=== PATIENT | male | born 1950 | race Caucasian/White ===

== ENCOUNTER 2019-12-16 13:08 | Emergency (ER) | payer MEDICARE, SELFPAY ==
[2019-12-16 13:15] VITALS: BP 180/94; PULSE 110; RESP 16; TEMP 37.7; O2SAT 95
--- NOTE | 2019-12-16 13:30 | ED.URI ---
HPI - URI/Sore Throat General Chief Complaint: Upper Respiratory Infection Stated Complaint: can't catch breath Time Seen by Provider: 12/16/19 13:31 Source: patient and RN notes reviewed Mode of arrival: ambulatory Limitations: no limitations History of Present Illness HPI Narrative: 69-year-old male presents with concern for wheezing and shortness of breath. Reports he was diagnosed in this clinic last year with COPD, was given an albuterol inhaler which he is used sporadically throughout the year. Reports he never went to see a doctor, does not take a controller medicine. Reports his albuterol inhaler ran out. Reports he was having no symptoms until today. Reports he went into a store and wore a cough mask and while wearing the mask was having shortness of breath and lightheadedness. Reports symptoms resolved when he took off the mask. He denies fever, body aches, sweats, chills, nasal congestion, rhinorrhea, cough. MD elicited complaint: other (Shortness of breath) Related Data Allergies Allergy/AdvReac Type Severity Reaction Status Date / Time No Known Allergies Allergy Verified 12/16/19 13:39 Review of Systems Review of Systems: Narrative: CONSTITUTIONAL: Denies malaise, chills, sweats, or fever. EYES: Denies visual changes, redness, or discharge. ENT: Reports rhinorrhea, congestion, sinus pain, otalgia and sore throat. CARDIOVASCULAR: Denies chest pain, palpitations, or edema. RESPIRATORY: Denies cough or current dyspnea. GASTROINTESTINAL: Denies abdominal pain, nausea, vomiting, diarrhea SKIN: Denies rash or itching. MUSCULOSKELETAL: Denies myalgia. NEUROLOGIC: Denies headache. All systems reviewed & are unremarkable except as noted in HPI and below PMFSH Social History Social History Alcohol intake: current Comments At time of signature, agree with nursing past medical, surgical, social and family history. There is no relevant family history pertinent to the presenting complaint Exam Narrative: Exam Narrative: GENERAL: Well-appearing, well-nourished, and in no acute distress. HEAD: Normocephalic, atraumatic. EYES: PERRLA, conjunctivae clear ENT: Nares clear. Mucous membranes moist. TM pearly snyder with sharp light reflex bilaterally; no tragal tenderness. Oropharynx without erythema or lesions. Tonsils not enlarged and without exudate. NECK: Supple. CHEST: No respiratory distress. Inspiratory and expiratory wheeze scattered, lung sounds equal. No bony deformities, no asymmetry. Speaks in full sentences. HEART: Regular rate and rhythm. No murmur heard. SKIN: Warm, dry, no rash. NEURO: Alert and oriented x3. PSYCH: Normal mood and affect Course Course Emergency Course: Discussed with patient importance of finding a primary care provider, seeking further evaluation of his blood pressure and COPD.. Patient is aware of diagnosis, understands and agrees to treatment plan. Anticipatory guidance given. Patient agrees to follow-up as directed and is aware of reasons to seek care at the emergency department. Portions of this record may have been created with voice recognition software Vital Signs Vital signs: Vital Signs Temperature 99.9 F H 12/16/19 13:15 Pulse Rate 110 H 12/16/19 13:15 Respiratory Rate 16 12/16/19 13:15 Blood Pressure 180/94 H 12/16/19 13:15 Pulse Oximetry 95 12/16/19 13:15 Temperature 99.9 F H 12/16/19 13:15 Pulse Rate 110 H 12/16/19 13:15 Respiratory Rate 16 12/16/19 13:15 Blood Pressure 180/94 H 12/16/19 13:15 Pulse Oximetry 95 12/16/19 13:15 Reviewed. Pt has been instructed to follow up with his primary care provider within the next week regarding his elevated blood pressure today. MDM - URI/Sore Throat MDM Narrative Medical decision making narrative: Differential diagnosis considered: COPD exacerbation, coronavirus, strep pharyngitis, allergic rhinitis, upper respiratory tract infection, sinusitis, rhinosinusitis, nasopharyngitis. viral pharyngitis, otitis
== END 2019-12-16 13:45 | disposition home or self-care (01) ==
PROVIDERS: Emergency Provider Nurse Practitioner
DX: J44.1 Chronic obstructive pulmonary disease with (acute) exacerbation (principal); R03.0 Elevated blood-pressure reading, without diagnosis of hypertension
CPT/HCPCS: 99213; G0463

== ENCOUNTER 2020-09-04 08:07 | Emergency (ER) | payer MEDICARE, SELFPAY ==
--- NOTE | 2020-09-04 08:25 | ED.URI ---
HPI - URI/Sore Throat General Chief Complaint: Shortness of Breath/Dyspnea Stated Complaint: SOB/COPD Time Seen by Provider: 09/04/20 08:25 Source: patient and RN notes reviewed Mode of arrival: wheelchair History of Present Illness HPI Narrative: 70-year-old male presents to [facility] with 24 hours of increased shortness of breath. Patient states he does have a history of COPD and uses an albuterol inhaler that he was prescribed several months ago at this clinic. States he ran out about a month ago. Denies chest pain, fevers, abdominal pain. No nausea vomiting or diarrhea. Patient is a smoker. Smokes approximately 1 pack a day. Is only able to talk in 2-3 words at one time. Currently tripoding on arrival. Needed a wheelchair to come into facility due to his shortness of breath. Denies having a primary care provider. Denies any other past medical history. MD elicited complaint: cough Related Data Allergies Allergy/AdvReac Type Severity Reaction Status Date / Time No Known Allergies Allergy Verified 12/16/19 13:39 Review of Systems Review of Systems: Narrative: CONSTITUTIONAL: Denies fever, chills, or sweats. EYES: Denies visual changes, redness, or discharge. CARDIOVASCULAR: Denies chest pain, palpitations, or edema. RESPIRATORY: Endorses cough or dyspnea. GASTROINTESTINAL: Denies abdominal pain, nausea, vomiting, or diarrhea. GENITOURINARY: Denies dysuria or hematuria. SKIN: Denies rash or itching. MUSCULOSKELETAL: Denies back pain, joint pain, or myalgia. NEUROLOGIC: Denies headache, numbness, or weakness. PSYCHIATRIC: Denies anxiety or depression. All other systems reviewed are negative, except as documented in HPI. [facility] Social History Social History Alcohol intake: current Comments States only past medical history is COPD. Denies surgical history. Patient smokes 1 pack of cigarettes per day At the time of my signature, I reviewed and agree with the nursing past medical, surgical, social, and family history. There is no relevant family history pertinent to the patient complaint. Exam Narrative: Exam Narrative: GENERAL: Patient is frail and ill in appearance, skin is dusky. In respiratory distress. HEAD: normocephalic, atraumatic. EYES: PERRL. Sclera clear/white. Vision is grossly intact. EARS: External ears normal. NOSE: External nose normal with no obvious nasal discharge. THROAT: Mucous membranes moist, posterior pharynx clear. NECK: Neck supple, non-tender without lymphadenopathy. CARDIOVASCULAR: Tachycardic RESPIRATORY: Tachypneic, decreased breath sounds bilaterally throughout all lung garza. Respiratory distress noted. GASTROINTESTINAL: Abdomen soft, non-tender, nondistended. SKIN: Pale, dusky. NEURO: awake, alert, and oriented to person, place and time. There were no obvious focal neurologic abnormalities. EXTREMITIES: No clubbing, edema. Const: General: ill appearing; No diaphoretic Orientation/consciousness: patient oriented x3 Resp: Effort & Inspection: labored, tachypneic and uses accessory muscles Auscultation: diminished lung sounds bilateral and diffuse Cardio: Rate: tachycardic Course Course Emergency Course: On arrival patient appeared in respiratory distress, tachypneic, pale, dusky in appearance. Vitals showed that patient was satting 83% tachycardic 130s to 140s. Patient is tripoding able to only sit in a tripod or 90 degree angle. Otherwise states that he is short of breath. EMS called. Report to [facility], closest facility. Spoke with Christie at [facility] Vital Signs Vital signs: Vital Signs Temperature 99.4 F 09/04/20 08:49 Pulse Rate 130 H 09/04/20 08:49 Respiratory Rate 28 H 09/04/20 08:49 Blood Pressure 202/108 H 09/04/20 08:49 Pulse Oximetry 83 L 09/04/20 08:49 Temperature 99.4 F 09/04/20 08:49 Pulse Rate 130 H 09/04/20 08:49 Respiratory Rate 28 H 09/04/20 08:49 Blood Pressure 202/108 H 09/04/20 08:49 Pulse Oximetry 83 L
--- NOTE | 2020-09-04 08:30 | ECG_ITS ---
Measurements Intervals [place] Rate: 113 P: 83 MS: 159 QRS: 55 QRSD: 88 T: 96 QT: 320 QTc: 440 Interpretive Statements SINUS TACHYCARDIA ATRIAL PREMATURE COMPLEX MISSING LEAD V4 BASELINE ARTIFACT- I, II, III, AVR, AVL, AVF, V1-V6 ABNORMAL ECG Electronically Signed On 09-04-2020 10:26:58 TIPPLE ENGINEER by Ike Aguilera D.O.
[2020-09-04 08:49] VITALS: BP 202/108; PULSE 130; RESP 28; TEMP 37.4; O2SAT 83
[2020-09-04 08:59] VITALS: O2SAT 91
== END 2020-09-04 08:45 | disposition short-term general hospital (02) ==
PROVIDERS: Emergency Provider Nurse Practitioner
DX: R06.02 Shortness of breath (principal); R09.02 Hypoxemia; R94.31 Abnormal electrocardiogram [ECG] [EKG]; J44.9 Chronic obstructive pulmonary disease, unspecified; F17.210 Nicotine dependence, cigarettes, uncomplicated
CPT/HCPCS: 93005; 99215; G0463

== ENCOUNTER 2021-07-06 13:53 | Outpatient (CLI) | payer MEDICARE, SELFPAY ==
[2021-07-06 20:50] LABS: Basophils Absolute Auto 0.1 K/mm3 (0.0-0.1); Basophils Percent Auto 0.8 % (0.2-1.2); Eosinophils Absolute Auto 0.3 K/mm3 (0-0.3); Hematocrit 44.8 % (42.0-52.0); Hemoglobin 14.8 g/dL (14.0-18.0); Immature Granulocyte Absolute 0.03 K/mm3 (0.00-0.031); Immature Granulocyte Percent A 0.3 % (0-0.5); Lymphocytes Absolute Auto 3.42 K/mm3 (0.9-3.2); Lymphocytes Percent Auto 33.3 % (18.3-44.2); Mean Corpuscular Hemoglobin 29.9 pg (26-34); Mean Corpuscular Volume 90.5 fl (80-100); Mean Platelet Volume 9.9 fl (7.4-10.4); Monocytes Absolute Auto 0.8 K/mm3 (0.1-0.6); Monocytes Percent Auto 7.9 % (2.6-8.5); Neutrophils Absolute Auto 5.6 K/mm3 (1.3-6.7); Neutrophils Percent Auto 54.7 % (45.5-73.1); Platelet Count Result 276 k/mm3 (150-375); Red Blood Count 4.95 M/mm3 (4.6-6.20); Red Cell Distribution Width 16.4 % (11.5-14.5); White Blood Count 10.3 K/mm3 (4.5-10.0)
[2021-07-06 21:08] LABS: Alanine Aminotransferase 20 U/L (4-50); Alkaline Phosphatase 78 U/L (38-126); Anion Gap 10 mmol/L (8-16); Aspartate Amino Transferase 34 U/L (17-59); Bilirubin,Total 0.4 mg/dL (0.2-1.3); Blood Urea Nitrogen 12 mg/dL (9-20); Calcium 10.1 mg/dL (8.4-10.2); Carbon Dioxide 26 mmol/L (22-30); Chloride 100 mmol/L (98-107); Cholesterol 209 mg/dL (0-200); Estimated Glomerular Filt Rate > 60; Glucose 90 mg/dL (65-110); Potassium 4.8 mmol/L (3.4-5.0); Sodium 136 mmol/L (137-145); Triglycerides 91 mg/dL (<150)
[2021-07-06 21:27] LABS: LDL Cholesterol Direct 87 mg/dL
[2021-07-06 21:44] LABS: Prostate Specific Antigen 1.4 ng/mL (< OR = 4.0)
[2021-07-06 22:02] LABS: HDL Direct 116 mg/dL
== END 2021-07-06 13:54 | disposition home or self-care (01) ==
PROVIDERS: PCP Family Medicine; Visit Provider Family Medicine
DX: J44.9 Chronic obstructive pulmonary disease, unspecified (principal); I10 Essential (primary) hypertension; Z00.00 Encounter for general adult medical examination without abnormal findings; Z12.5 Encounter for screening for malignant neoplasm of prostate
CPT/HCPCS: 36415; 80053; 80061; 84153; 84443; 85025; G0103

== ENCOUNTER 2022-02-23 08:27 | Outpatient (CLI) | payer MEDICARE, SELFPAY ==
[2022-02-23 19:54] LABS: Hematocrit 44.7 % (42.0-52.0); Hemoglobin 13.8 g/dL (14.0-18.0); Mean Corpuscular HGB Conc 30.9 g/dl (32-36); Mean Corpuscular Hemoglobin 30.2 pg (26-34); Mean Corpuscular Volume 97.8 fl (80-100); Mean Platelet Volume 10.4 fl (7.4-10.4); Platelet Count Result 262 k/mm3 (150-375); Red Blood Count 4.57 M/mm3 (4.6-6.20); Red Cell Distribution Width 16.9 % (11.5-14.5)
[2022-02-23 20:01] LABS: Alanine Aminotransferase 29 U/L (6-50); Albumin Level 4.7 g/dL (3.5-5.1); Alkaline Phosphatase 66 U/L (38-126); Anion Gap 6 mmol/L (8-16); Aspartate Amino Transferase 67 U/L (17-59); Bilirubin,Total 0.5 mg/dL (0.2-1.3); Blood Urea Nitrogen 11 mg/dL (9-20); Calcium 9.2 mg/dL (8.4-10.2); Carbon Dioxide 28 mmol/L (22-30); Chloride 101 mmol/L (98-107); Estimated Glomerular Filt Rate > 60; Glucose 89 mg/dL (65-110); Potassium 4.5 mmol/L (3.4-5.0); Sodium 135 mmol/L (137-145)
[2022-02-23 20:31] LABS: Prostate Specific Antigen 0.8 ng/mL (< OR = 4.0)
== END 2022-02-23 08:28 | disposition home or self-care (01) ==
PROVIDERS: PCP Family Medicine; Visit Provider Family Medicine
DX: F17.200 Nicotine dependence, unspecified, uncomplicated (principal); Z12.5 Encounter for screening for malignant neoplasm of prostate
CPT/HCPCS: 36415; 80053; 84153; 85027; G0103

== ENCOUNTER 2022-08-24 07:56 | Outpatient (CLI) | payer MEDICARE, SELFPAY ==
[2022-08-24 19:33] LABS: Hematocrit 42.7 % (42.0-52.0); Mean Corpuscular HGB Conc 32.8 g/dl (32-36); Mean Corpuscular Hemoglobin 30.1 pg (26-34); Mean Corpuscular Volume 91.8 fl (80-100); Mean Platelet Volume 10.3 fl (7.4-10.4); Platelet Count Result 272 k/mm3 (150-375); Red Blood Count 4.65 M/mm3 (4.6-6.20); Red Cell Distribution Width 15.6 % (11.5-14.5); White Blood Count 7.5 K/mm3 (4.5-10.0)
[2022-08-24 19:41] LABS: Alanine Aminotransferase 16 U/L (6-50); Albumin Level 4.7 g/dL (3.5-5.1); Alkaline Phosphatase 62 U/L (38-126); Aspartate Amino Transferase 63 U/L (17-59); Bilirubin,Total 0.8 mg/dL (0.2-1.3)
[2022-08-24 20:23] LABS: Hepatitis B Surface Antigen Negative (Negative)
[2022-08-24 20:29] LABS: HAV RESULT Negative (Negative); Hepatitis B Core IgM Result Negative (Negative)
[2022-08-24 20:40] LABS: Hepatitis C Virus Antibody Negative (Negative)
== END 2022-08-24 07:57 | disposition home or self-care (01) ==
PROVIDERS: PCP Family Medicine; Visit Provider Family Medicine
DX: D64.9 Anemia, unspecified (principal); R74.8 Abnormal levels of other serum enzymes; R74.01 Elevation of levels of liver transaminase levels; R74.02 Elevation of levels of lactic acid dehydrogenase [LDH]
CPT/HCPCS: 36415; 80074; 80076; 85027

== ENCOUNTER 2024-07-17 11:05 | Outpatient (CLI) | payer MEDICARE, SELFPAY ==
--- NOTE | ~2024-07-17 | XR_ITS ---
Clinical Indication: Cough PA and lateral views of the chest: Comparison: 01/30/2019 Findings: The lungs are clear, without evidence of focal consolidation or pleural effusion. Cardiome diastinal silhouette is within normal limits. Bones and soft tissues are unremarkable. Impression: Normal chest. Reviewed, dictated and finalized at [facility]. RY PUBLIC Impression: Normal chest.
[2024-07-17 19:56] LABS: Basophils Percent Auto 0.5 % (0.2-1.2); Eosinophils Absolute Auto 0.5 K/mm3 (0-0.3); Eosinophils Percent Auto 6.5 % (0-4.4); Hematocrit 37.1 % (42.0-52.0); Immature Granulocyte Absolute 0.01 K/mm3 (0.00-0.031); Immature Granulocyte Percent A 0.1 % (0-0.5); Lymphocytes Absolute Auto 2.64 K/mm3 (0.9-3.2); Lymphocytes Percent Auto 34.9 % (18.3-44.2); Mean Corpuscular HGB Conc 32.3 g/dl (32-36); Mean Corpuscular Hemoglobin 27.8 pg (26-34); Mean Corpuscular Volume 85.9 fl (80-100); Monocytes Absolute Auto 0.9 K/mm3 (0.1-0.6); Monocytes Percent Auto 12.3 % (2.6-8.5); Neutrophils Absolute Auto 3.5 K/mm3 (1.3-6.7); Neutrophils Percent Auto 45.7 % (45.5-73.1); Platelet Count Result 335 k/mm3 (150-375); Red Blood Count 4.32 M/mm3 (4.6-6.20); Red Cell Distribution Width 18.3 % (11.5-14.5); White Blood Count 7.6 K/mm3 (4.5-10.0)
[2024-07-17 20:06] LABS: Alanine Aminotransferase 16 U/L (6-50); Albumin Level 4.6 g/dL (3.5-5.1); Alkaline Phosphatase 60 U/L (38-126); Anion Gap 6 mmol/L (4-12); Aspartate Amino Transferase 42 U/L (17-59); Bilirubin,Total 0.5 mg/dL (0.2-1.3); Blood Urea Nitrogen 13 mg/dL (9-20); Calcium 9.4 mg/dL (8.4-10.2); Carbon Dioxide 26 mmol/L (22-30); Chloride 101 mmol/L (98-107); Cholesterol 166 mg/dL (0-200); Estimated Glomerular Filt Rate > 60; Glucose 100 mg/dL (65-110); HDL Direct 98 mg/dL; Sodium 133 mmol/L (137-145); Triglycerides 42 mg/dL (<150)
[2024-07-17 20:17] LABS: LDL Cholesterol Direct 50 mg/dL
== END 2024-07-17 11:06 | disposition home or self-care (01) ==
LOC: ANHBWCLAB 11:06
PROVIDERS: PCP Nurse Practitioner Adult Health; Visit Provider Nurse Practitioner Adult Health
DX: R05.9 Cough, unspecified (principal); I10 Essential (primary) hypertension
CPT/HCPCS: 36415; 71046; 80053; 80061; 83735; 85025

== ENCOUNTER 2024-07-19 11:06 | Outpatient (CLI) | payer MEDICARE, SELFPAY ==
[2024-07-19 21:03] LABS: Iron 38 ug/dL (49-181)
[2024-07-19 21:13] LABS: Percent Iron Saturation 7 % (20-50)
== END 2024-07-19 11:07 | disposition home or self-care (01) ==
PROVIDERS: PCP Nurse Practitioner Adult Health; Visit Provider Nurse Practitioner Adult Health
DX: D64.9 Anemia, unspecified (principal)
CPT/HCPCS: 36415; 82728; 83540; 83550

== ENCOUNTER 2025-02-19 08:30 | Outpatient (CLI) | payer MEDICARE, SELFPAY ==
--- OUTSIDE RECORDS SUMMARY | 2025-02-19 08:36 | XMS_ITS | Clinical Summary ---
Author Organization [facility] Address [address] [place] [address] Care Team Providers Care Safety Assistant Name Role Phone Luis Shahid MD Primary Care Provider [phone] Allergies No known active allergies Medications albuterol 2.5 mg /3 mL (0.083 %) nebulizer solution Take 3 mL (2.5 mg total) by nebulization every 4 (four) hours as needed for wheezing 75 mL 09/05/19 21 Active nicotine (NICODERM CQ) [address] 1 patch on the skin daily 30 patch 09/05/19 21 Active albuterol (PROAIR RESPICLICK) 90 mcg/actuation inhaler Inhale 2 puffs every 6 (six) hours as needed for wheezing 1 each 05/25/20 23 Active fluticasone propion-salmetero L (ADVAIR DISKUS) 250-50 mcg/dose diskus inhaler Inhale 1 puff 2 (two) times a day Rinse mouth with water after use. Do not swallow. 60 each 05/25/20 23 Active ipratropium-albut Jose Miguel (DUO-NEB) 0.5-2.5 mg/3 mL nebulizer solutionIndicatio ns:Chronic Obstructive Pulmonary Disease with Bronchospasms Take 3 mL by nebulization every 6 (six) hours 180 mL 05/25/20 23 Active lisinopril-hydroC HLOROthiazide (ZESTORETIC) 20-25 mg per tabletIndications :hypertension Take 1 tablet by mouth daily 30 tablet 05/25/20 23 Active lisinopriL (PRINIVIL,ZESTRIL ) 30 mg tablet 03/28/20 24 Active Active Problems Problem Noted Date Diagnosed Date COPD exacerbation 09/04/2020 Mucopurulent chronic bronchitis Surgical History Surgery Date Site/Laterality Comments HERNIA REPAIR LEG SURGERY Medical History Medical History Date Comments COPD (chronic obstructive pulmonary disease) (HC C) Social History Tobacco Use Types Packs/Day Years Used Date Smoking Tobacco: Every Day Cigarettes Smokeless Tobacco: Never Personal Safety Answer Date Recorded Have you ever been in or are you currently in a harmful physical or emotional relationship or is someone making you feel afraid or unsafe? 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 Gender Identity Not on file Sexual Orientation Not on file Obstetrics History Last Filed Vital Signs Vital Sign Reading Time Taken Comments Blood Pressure 163/99 05/25/2023 11:30 PM CDT Pulse 84 05/25/2023 11:30 PM CDT Temperature 36.9 C (98.4 F) 05/25/2023 10:07 PM CDT Respiratory Rate 11 05/25/2023 11:30 PM CDT Oxygen Saturation 94% 05/25/2023 11:38 PM CDT Inhaled Oxygen Concentration - - Weight 58.5 kg (129 lb) 05/25/2023 10:07 PM CDT Height 175.3 cm (5' 9.02) 09/04/2020 1:55 PM CS T Body Mass Index 19.04 09/04/2020 1:55 PM EARTH BURNER Plan of Treatment Health Maintenance Due Date Last Done Comments Colon Cancer Screening-Colonoscopy 1950 Depression Screening 1950 Hepatitis C Screening 1950 DTaP/Tdap/Td Vaccine (1 - Tdap) 1963 Hepatitis B Screening 1970 Pneumococcal vaccine 65+ (1 of 2 - PCV) 1971 Zoster Vaccine (1 of 2) 2002 Abdominal Aortic Aneurysm (AAA) Screen 2017 Well Visit 65+ 2017 Fall Risk Assessment 09/05/2021 09/05/2020 Influenza Vaccine (#1) 2025 Insurance [facility] MDCR HMO REF [facility] [address] [place] [id number] [facility] MEDICARE ADVANTAGE Advance Directives For more information, please contact: [phone] * Full Code (Latest Code Status on File) Date Activated Date Inactivated Comments 09/04/2020 2:18 PM 09/05/2020 10:06 PM Care Teams Safety Assistant Relationship Specialty Start Date End Date Luis Shahid MD PCP - General Family Practice 05/25/23
--- OUTSIDE RECORDS SUMMARY | 2025-02-19 08:36 | XMS_ITS | Referral Summary ---
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
[2025-02-19 19:38] LABS: Hematocrit 42.0 % (42.0-52.0); Hemoglobin 13.3 g/dL (14.0-18.0); Mean Corpuscular HGB Conc 31.7 g/dl (32-36); Mean Corpuscular Hemoglobin 31.1 pg (26-34); Mean Corpuscular Volume 98.4 fl (80-100); Platelet Count Result 256 k/mm3 (150-375); Red Blood Count 4.27 M/mm3 (4.6-6.20); White Blood Count 6.9 K/mm3 (4.5-10.0)
[2025-02-19 19:45] LABS: Alanine Aminotransferase 19 U/L (6-50); Albumin Level 4.3 g/dL (3.5-5.1); Alkaline Phosphatase 44 U/L (38-126); Anion Gap 7 mmol/L (4-12); Aspartate Amino Transferase 65 U/L (17-59); Bilirubin,Total 0.5 mg/dL (0.2-1.3); Blood Urea Nitrogen 10 mg/dL (9-20); Calcium 10.1 mg/dL (8.4-10.2); Carbon Dioxide 28 mmol/L (22-30); Chloride 101 mmol/L (98-107); Cholesterol 187 mg/dL (0-200); Estimated Glomerular Filt Rate > 60; Glucose 68 mg/dL (65-110); HDL Direct 101 mg/dL; Potassium 5.5 mmol/L (3.4-5.0); Sodium 136 mmol/L (137-145); Total Protein 7.7 g/dL (6.3-8.2); Triglycerides 60 mg/dL (<150)
[2025-02-19 19:47] LABS: Iron 53 ug/dL (49-181)
[2025-02-19 20:03] LABS: Percent Iron Saturation 12 % (20-50)
[2025-02-19 20:12] LABS: Ferritin 16.20 ng/mL (11.1-264)
[2025-02-19 20:13] LABS: Prostate Specific Antigen 0.9 ng/mL (< OR = 4.0)
== END 2025-02-19 08:31 | disposition home or self-care (01) ==
LOC: ANHBWCLAB 08:33
PROVIDERS: PCP Nurse Practitioner Adult Health; Visit Provider Nurse Practitioner Adult Health
DX: R74.8 Abnormal levels of other serum enzymes (principal); I10 Essential (primary) hypertension; Z12.5 Encounter for screening for malignant neoplasm of prostate; D64.9 Anemia, unspecified
CPT/HCPCS: 36415; 80053; 80061; 82728; 83540; 83550; 84153; 85027; G0103

== ENCOUNTER 2025-02-27 09:13 | Outpatient (CLI) | payer MEDICARE, SELFPAY ==
--- OUTSIDE RECORDS SUMMARY | 2025-02-27 09:17 | XMS_ITS | Clinical Summary ---
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 Gender Identity Not on file Sexual Orientation [...] Body Mass Index 19.04 09/04/2020 1:55 PM SAVINGS COUNSELOR Plan of Treatment Health Maintenance Due Date [...] 09/05/2021 09/05/2020 Influenza Vaccine (#1) 2025 Insurance [facility] MDCR HMO REF [facility] [address] [place] [id number] [facility] MEDICARE ADVANTAGE Advance Directives For more information, please contact: [phone] * Full Code (Latest Code Status on File) Date Activated Date Inactivated Comments 09/04/2020 2:18 PM 09/05/2020 10:06 PM Care Teams Senior Back End Java Developer Relationship Specialty Start Date End Date Luis Shahid MD PCP - General Family Practice 05/25/23
--- OUTSIDE RECORDS SUMMARY | 2025-02-27 09:17 | XMS_ITS | Referral Summary ---
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 MEDICARE Address: [facility] [address] [place] [address] [facility] MEDICARE ADVANTAGE Advance Directives For more information, please contact: [phone] * Full Code (Latest Code Status on File) Date Activated Date Inactivated Comments 09/04/2020 2:18 PM 09/05/2020 10:06 PM Care Teams Social Service Director Relationship Specialty Start Date End Date Luis Shahid MD PCP - General Family Practice 05/25/23
[2025-02-27 18:49] LABS: Potassium 4.3 mmol/L (3.4-5.0)
== END 2025-02-27 09:14 | disposition home or self-care (01) ==
PROVIDERS: PCP Nurse Practitioner Adult Health; Visit Provider Nurse Practitioner Adult Health
DX: E87.5 Hyperkalemia (principal)
CPT/HCPCS: 36415; 84132

== ENCOUNTER 2025-06-18 10:30 | Outpatient (CLI) | payer MEDICARE, SELFPAY ==
--- OUTSIDE RECORDS SUMMARY | 2025-06-18 12:09 | XMS_ITS | Clinical Summary ---
Author Organization [facility] Address [address] [place] [address] Care Team Providers [employer] Name Role Phone Luis Shahid MD Primary Care Provider [phone] Julio Céasr Strauss DO Unavailable [phone] Lisa Joe MA Unavailable [phone] Allergies No known active allergies Medications albuterol 2.5 mg /3 mL (0.083 %) nebulizer solution Take 3 mL (2.5 mg total) by nebulization every 4 (four) hours as needed for wheezing 75 mL 021 Active nicotine (NICODERM CQ) [address] 1 patch on the skin daily 30 patch 021 Active ipratropium-albu teroL (DUO-NEB) 0.5-2.5 mg/3 mL nebulizer solutionIndicati ons:Chronic Obstructive Pulmonary Disease with Bronchospasms Take 3 mL by nebulization every 6 (six) hours 180 mL 023 Active lisinopriL (PRINIVIL,ZESTRI L) 30 mg tablet 024 Active albuterol (PROAIR RESPICLICK) 90 mcg/actuation inhaler Inhale 2 puffs every 6 (six) hours as needed for wheezing Active budesonide-glyco pyr-formoterol (Breztri Aerosphere) 160-9-4.8 mcg/actuation inhaler Inhale 2 puffs 2 (two) times a day Active cefdinir (OMNICEF) 300 mg capsule Take 1 capsule (300 mg total) by mouth 2 (two) times a day for 5 days 10 capsule 025 2024 Active predniSONE (DELTASONE) 20 mg tablet Take 2 tablets (40 mg) by mouth daily for 3 days, THEN 1.5 tablets (30 mg) daily for 3 days, THEN 1 tablet (20 mg) daily for 3 days, THEN 0.5 tablets (10 mg) daily for 3 days. 15 tablet 025 2024 Active albuterol (PROAIR RESPICLICK) 90 mcg/actuation inhaler Inhale 2 puffs every 6 (six) hours as needed for wheezing 1 each 023 2024 Discontinued(S top Taking at Discharge) fluticasone propion-salmeter oL (ADVAIR DISKUS) 250-50 mcg/dose diskus inhaler Inhale 1 puff 2 (two) times a day Rinse mouth with water after use. Do not swallow. 60 each 023 2024 Discontinued(T herapy completed) lisinopril-hydro CHLOROthiazide (ZESTORETIC) 20-25 mg per tabletIndication s:hypertension Take 1 tablet by mouth daily 30 tablet 023 2024 Discontinued(T herapy completed) cefdinir (OMNICEF) 300 mg capsule Take 1 capsule (300 mg total) by mouth 2 (two) times a day for 5 days 10 capsule 025 2024 Discontinued predniSONE (DELTASONE) 20 mg tablet Take 2 tablets (40 mg) by mouth daily for 3 days, THEN 1.5 tablets (30 mg) daily for 3 days, THEN 1 tablet (20 mg) daily for 3 days, THEN 0.5 tablets (10 mg) daily for 3 days. 15 tablet 025 2024 Discontinued Active Problems Problem Noted Date Diagnosed Date Moderate protein-calorie malnutrition 06/11/2025 Acute hypoxemic respiratory failure 06/10/2025 Alcohol abuse 06/10/2025 Hyponatremia 06/10/2025 COPD exacerbation 09/04/2020 Mucopurulent chronic bronchitis Encounters Date Type Department Care Team Description 06/17/2025 JB ED Outreach [facility] Organization [address] [place] [address] Lisa Joe MA 06/10/2025 1:52 AM CDT - 06/14/2025 4:16 PM CDT Hospital Encounter [facility] Acute Medicine [address] [place] [address] Ruben Bazan MD Huynh, Kiet T., MD Nikolic, Jelena, MD Acute hypoxic respiratory failure (HCC) (Primary Dx); Acute hypoxemic respiratory failure (HCC); COPD exacerbation (HCC) Discharge Disposition: Discharge to home or self care 06/10/2025 1:35 AM CDT - 06/10/2025 11:59 PM CDT Hospital Encounter [facility] Emergency, Room R Discharge Disposition: Discharge to home or self care from Last 3 Months Surgical History Surgery Date Site/Laterality Comments HERNIA REPAIR LEG SURGERY Medical History Medical History Date Comments COPD (chronic obstructive pulmonary disease) Social History Tobacco Use Types Packs/Day Years Used Date Smoking Tobacco: Every Day Cigarettes 0.5 50 Smokeless Tobacco: Never Tobacco Cessation:Ready to Q uit: Yes; Counseling Given: Not Answered Alcohol Use Standard Drinks/Week Comments Yes 20 (1 standard drink = 0.6 oz pu re alcohol) Social Connection and Isolation Panel Answer Date Recorded In a typical week, how many times do you talk on the phone with family, friends, or neighbors? More than three times a week 06/10/2025 How often do you get togethe r with friends or relatives? More than three times a week 06/10/2025 How often do you attend [facility] or adventist services? Never 06/10/2025 Do you belong to any clubs o r organizations such as congregation groups, unions, fraternal or athletic groups, or school groups? Yes 06/10/2025 How often do you attend meet ings of the clubs or organizations you belong to? More than 4 times per year 06/10/2025 Are you , , di vorced, , never , or living with a partner? 06/10/2025 AUDIT-C Answer Date Recorded Q1: How often do you have a drink containing alcohol? 4 or more times a week 06/10/2025 Q2: How many drinks containi ng alcohol do you have on a typical day when you are drinking? 5 or 6 Q3: How often do you have si x or more drinks on one occasion? Weekly 06/10/2025 Overall Financial Resource Strain (CARDIA) Answe r Date Recorded How hard is it for you to pa y for the very basics like food, housing, medical care, and heating? Not hard at all 06/10/2025 Hunger Vital Sign Answer Date Recorded Within the past 12 months, y ou worried that your food would run out before you got the money to buy more. Never true 06/10/20 Within the past 12 months, t he food you bought just didn't last and you didn't have money to get more. Never true 06/10/2025 PRAPARE - Transportation Answer Date Re corded In the past 12 months, has l ack of transportation kept you from medical appointments or from getting medications? No 05/16 In the past 12 months, has l ack of transportation kept you from meetings, work, or from getting things needed for daily living? No 06/10/2025 Housing Stability Vital Sign Answer Kwabena e Recorded In the last 12 months, was t here a time when you were not able to pay the mortgage or rent on time? No 06/10/2025 In the past 12 months, how m any times have you moved where you were living? 0 06/10/2025 At any time in the past 12 m [facility], were you homeless or living in a senior care (including now)? No 06/10/2025 [facility] Utilities Answer Date Recorded In the past 12 months has e [employer], gas, oil, or water company threatened to shut off services in your home? No 06/10/2025 Personal Safety Answer Date Recorded Have you ever been in or are you currently in a harmful physical or emotional relationship or is someone making you feel afraid or unsafe? 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 Gender Identity Not on file Sexual Orientation Not on file Last Filed Vital Signs Vital Sign Reading Time Taken Comments Blood Pressure 138/85 06/14/2025 12:00 PM CDT Pulse 100 06/14/2025 12:00 PM CDT Temperature 36.7 C (98 F) 06/14/2025 12:00 PM CDT Respiratory Rate 18 06/14/2025 12:00 PM CDT Oxygen Saturation 92% 06/14/2025 10:59 AM CDT Inhaled Oxygen Concentration - - Weight 54 kg (119 lb 0.8 oz) 06/11/2025 5:00 PM CDT Height 172.7 cm (5' 8) 06/10/2025 6:33 AM CDT Body Mass Index 18.1 06/10/2025 6:33 AM CDT Plan of Treatment Health Maintenance Due Date Last Done Comments Colon Cancer Screening-Colonoscopy 1950 Depression Screening 1950 Hepatitis C Screening 1950 DTaP/Tdap/Td Vaccine (1 - Tdap) 1963 Hepatitis B Screening 1970 Pneumococcal vaccine 65+ (1 of 2 - PCV) 1971 Lung Cancer Screening 2002 Zoster Vaccine (1 of 2) 2002 Abdominal Aortic Aneurysm (AAA) Screen 2017 Well Visit 65+ 2017 Influenza Vaccine (#1) 2025 Fall Risk Assessment 06/14/2026 06/14/2025 Procedures Procedure Name Priority Date/Time Associated Diagnosis Comments EGFR Routine 06/14/2025 3:42 AM CDT DIFFERENTIAL AUTO Routine 06/14/2025 3:4 2 AM CDT COMPREHENSIVE METABOLIC PANEL Routine 06/14/2025 3:42 AM CDT CBC WITH AUTO DIFFERENTIAL Routine 06/14/2025 3:42 AM CDT EGFR Routine 06/13/2025 3:40 AM CDT DIFFERENTIAL AUTO Routine 06/13/2025 3:4 0 AM CDT COMPREHENSIVE METABOLIC PANEL Routine 06/13/2025 3:40 AM CDT CBC WITH AUTO DIFFERENTIAL Routine 06/13/2025 3:40 AM CDT EGFR Routine 06/12/2025 3:00 AM CDT DIFFERENTIAL AUTO Routine 06/12/2025 3:0 0 AM CDT COMPREHENSIVE METABOLIC PANEL Routine 06/12/2025 3:00 AM CDT CBC WITH AUTO DIFFERENTIAL Routine 06/12/2025 3:00 AM CDT EGFR Routine 06/11/2025 4:12 AM CDT DIFFERENTIAL AUTO Routine 06/11/2025 4:1 2 AM CDT COMPREHENSIVE METABOLIC PANEL Routine 06/11/2025 4:12 AM CDT CBC WITH AUTO DIFFERENTIAL Routine 06/11/2025 4:12 AM CDT PNEUMONIA PCR Routine 06/10/2025 2:24 PM CDT PNEUMONIA PCR WITH AEROBIC CULTURE AND GRAM STAIN Routine 06/10/2025 2:24 PM CDT PROCALCITONIN Routine 06/10/2025 5:10 AM CDT EGFR Routine 06/10/2025 5:09 AM CDT DIFFERENTIAL AUTO Routine 06/10/2025 5:0 9 AM CDT COMPREHENSIVE METABOLIC PANEL Routine 06/10/2025 5:09 AM CDT CBC WITH AUTO DIFFERENTIAL Routine 06/10/2025 5:09 AM CDT INFLUENZA A/B, RSV, AND COVID-19 PCR STAT 06/10/2025 5:09 AM CDT LEGIONELLA ANTIGEN, URINE Routine 06/10/2025 5:09 AM CDT STREP PNEUMONIAE AG, URINE Routine 06/10/2025 5:09 AM CDT TROPONIN T HIGH-SENSITIVITY 2-HOUR Timed 06/10/2025 4:[address] CHEST PE W CONTRAST ED 3:53 AM CDT XR CHEST 1 VIEW ED 06/10/2025 2:26 AM CDT EGFR STAT 06/10/2025 2:00 AM CDT DIFFERENTIAL AUTO STAT 06/10/2025 2:0 0 AM CDT PRO B-TYPE NATRIURETIC PEPTIDE STAT 06/10/2025 2:00 AM CDT BLOOD GAS, VENOUS STAT 06/10/2025 2:0 0 AM CDT MAGNESIUM STAT 06/10/2025 2:00 AM CDT TROPONIN T HIGH-SENSITIVITY SERIES (BASELINE, 2HR, 4HR, 6HR) STAT 06/10/2025 2:00 AM CDT COMPREHENSIVE METABOLIC PANEL STAT 06/10/2025 2:00 AM CDT CBC WITH AUTO DIFFERENTIAL STAT 06/10/2025 2:00 AM CDT ECG 12-LEAD STAT 06/10/2025 1:53 AM CDT from Last 3 Months Results * eGFR (06/14/2025 3:42 AM CDT) [facility] eGFR 87 >=60 mL/min/1. 73 m2 Comment: Interpretive Data Reference Interval Normal >/= 90 mL/min/1.73m2 Mildly decreased* 60 - 89 mL/min/1.73m2 Mildly to moderately decreased 45 - 59 mL/min/1.73m2 Moderately to severely decreased 30 - 44 mL/min/1.73m2 Severely decreased 15 - 29 mL/min/1.73m2 Kidney Failure < 15 mL/min/1.73m2 *Relative to young adult level Estimated glomerular filtration rate is determined by the 2020 CKD-EPI equation recommended by the National Kidney Foundation (A Unifying Approach to GFR Estimation: Recommendations of the NKF-ASK Task Force on Reassessing the Inclusion of Race in Diagnosing Kidney Disease, JASN 2020). The CKD-EPI equation should not be used for patients with unstable renal function and has not been validated in children and those over 70. Current interpretive data was last reviewed 2021. Blood 06/14/2025 3:42 AM CDT 06/14/2025 3:48 AM CDT us Rob Gonzales MD LAB BLOOD ORDERABLES Final Resu lt [facility] ([place]) 1 [facility] Department [place] [address] * (ABNORMAL) Differential, auto (06/14/2025 3:42 AM CDT) Neutrophil abs 6.49 1.50 - 6.50 K/cumm Imm gran abs 0.02 0.00 - 0.10 K/cumm [facility] ([place]) Lymphocyte abs 4.07(H) 0.80 - 3.30 K/cumm [facility] ([place]) Monocyte abs 0.92(H) 0.20 - 0.80 K/cumm [facility] ([place]) Eosinophil abs 0.04 0.00 - 0.50 K/cumm [facility] ([place]) Basophil abs 0.02 0.00 - 0.10 K/cumm [facility] ([place]) Neutrophil pct 56.1 % [facility] ([place]) Comment: Interpretive Data Percent cell count reference ranges are not reported, since discordance with absolute values may lead to misinterpretation of CBC data. Current Interpretive Data was last revised on 2017. Imm gran pct 0.2 % [facility] ([place]) Comment: Interpretive Data Percent cell count reference ranges are not reported, since discordance with absolute values may lead to misinterpretation of CBC data. Current Interpretive Data was last revised on 2017. Lymphocyte pct 35.2 % [facility] ([place]) Comment: Interpretive Data Percent cell count reference ranges are not reported, since discordance with absolute values may lead to misinterpretation of CBC data. Current Interpretive Data was last revised on 2017. Monocyte pct 8.0 % [facility] ([place]) Comment: Interpretive Data Percent cell count reference ranges are not reported, since discordance with absolute values may lead to misinterpretation of CBC data. Current Interpretive Data was last revised on 2017. Eosinophil pct 0.3 % [facility] ([place]) Comment: Interpretive Data Percent cell count reference ranges are not reported, since discordance with absolute values may lead to misinterpretation of CBC data. Current Interpretive Data was last revised on 2017. Basophil pct 0.2 % [facility] ([place]) Comment: Interpretive Data Percent cell count reference ranges are not reported, since discordance with absolute values may lead to misinterpretation of CBC data. Current Interpretive Data was last revised on 2017. Blood 06/14/2025 3:42 AM CDT 06/14/2025 3:48 AM CDT us Rob Gonzales MD LAB BLOOD ORDERABLES Final Resu lt [facility] ([place]) 1 [facility] Department [place] [address] * (ABNORMAL) CBC with auto differential (06/14/2025 3:42 AM CDT) WBC 11.56(H) 3.80 - 9.90 K/cumm Hgb 13.2 13.0 - 17.5 g/dL [facility] ([place]) Hct 38.3(L) 38.9 - 50.3 % [facility] ([place]) Plt 254 150 - 400 K/cumm [facility] ([place]) MPV 9.0(L) 9.1 - 12.3 fL [facility] ([place]) RBC 4.06(L) 4.30 - 5.80 M/cumm [facility] ([place]) MCV 94.3 81.3 - 96.4 fL [facility] ([place]) MCH 32.5 27.1 - 33.3 pg [facility] ([place]) MCHC 34.5 32.3 - 35.7 g/dL [facility] ([place]) RDW CV 15.1(H) 11.1 - 14.9 % [facility] ([place]) RDW SD 52.9(H) 35.7 - 48.1 fL [facility] NRBC abs 0.00 0.00 - 0.01 K/cumm [facility] ([place]) Blood 06/14/2025 3:42 AM CDT 06/14/2025 3:48 AM CDT us Rob Gonzales MD LAB BLOOD ORDERABLES Final [facility]u lt [facility] 1 [facility] Department [place] [address] * (ABNORMAL) Comprehensive metabolic panel (06/14/2025 3:42 AM CDT) Sodium 136 135 - 145 mmol/L Potassium, pl 4.3 3.3 - 4.9 mmol/L [facility] Chloride 100 97 - 110 mmol/L [facility]) CO2 29 22 - 32 mmol/L [facility] Anion gap 7 2 - 15 mmol/L [facility] BUN 26(H) 6 - 25 mg/dL [facility] Creatinine 0.93 0.80 - 1.30 mg/dL [facility]) Glucose 101 70 - 199 mg/dL [facility] Comment: Interpretive Data Fasting glucose >/= 126 mg/dl is diagnostic for diabetes. Fasting is defined as no caloric intake for at least 8 hours. Fasting glucose between 100 mg/dl to 125 mg/dl is diagnostic of prediabetes. In a patient with classic symptoms of hyperglycemia or hyperglycemic crisis, a random glucose >/= 200 mg/dl is diagnostic for diabetes. In the absence of unequivocal hyperglycemia, results should be confirmed by repeat testing. The classification and Diagnosis of Diabetes Diabetes Care 2022; 46: S19-S40. Current interpretive data was last revised 2022. Calcium 9.2 8.5 - 10.3 mg/dL [facility] ([place]) Bilirubin, total 0.3 0.1 - 1.2 mg/dL [facility] ([place]) Protein, pl 6.2(L) 6.5 - 8.5 g/dL [facility] ([place]) Albumin 3.8 3.5 - 5.0 g/dL [facility]) Alk phos 45 40 - 130 Units/L [facility]) ALT 22 7 - 55 Units/L [facility] AST 21 10 - 50 Units/L [facility] ([place]) Blood 06/14/2025 3:42 AM CDT 06/14/2025 3:48 AM CDT us Rob Gonzales MD LAB BLOOD ORDERABLES Final Resu lt [facility] ([place]) 1 [facility] Department [place] [address] * eGFR (06/13/2025 3:40 AM CDT) eGFR 87 >=60 mL/min/1. 73 m2 Comment: Interpretive Data Reference Interval Normal >/= 90 mL/min/1.73m2 Mildly decreased* 60 - 89 mL/min/1.73m2 Mildly to moderately decreased 45 - 59 mL/min/1.73m2 Moderately to severely decreased 30 - 44 mL/min/1.73m2 Severely decreased 15 - 29 mL/min/1.73m2 Kidney Failure < 15 mL/min/1.73m2 *Relative to young adult level Estimated glomerular filtration rate is determined by the 2020 CKD-EPI equation recommended by the National Kidney Foundation (A Unifying Approach to GFR Estimation: Recommendations of the NKF-ASK Task Force on Reassessing the Inclusion of Race in Diagnosing Kidney Disease, JASN 2020). The CKD-EPI equation should not be used for patients with unstable renal function and has not been validated in children and those over 70. Current interpretive data was last reviewed 2021. Blood 06/13/2025 3:40 AM CDT 06/13/2025 4:00 AM CDT us Rob Gonzales MD LAB BLOOD ORDERABLES Final Resu lt [facility] ([place]) 1 [facility] Department [place] [address] * (ABNORMAL) Differential, auto (06/13/2025 3:40 AM CDT) Neutrophil abs 10.83(H) 1.50 - 6.50 K/cumm Imm gran abs 0.05 0.00 - 0.10 K/cumm [facility] ([place]) Lymphocyte abs 1.10 0.80 - 3.30 K/cumm [facility] ([place]) Monocyte abs 0.43 0.20 - 0.80 K/cumm [facility] ([place]) Eosinophil abs 0.00 0.00 - 0.50 K/cumm [facility] ([place]) Basophil abs 0.01 0.00 - 0.10 K/cumm [facility] ([place]) Neutrophil pct 87.1 % [facility] ([place]) Comment: Interpretive Data Percent cell count reference ranges are not reported, since discordance with absolute values may lead to misinterpretation of CBC data. Current Interpretive Data was last revised on 2017. Imm gran pct 0.4 % [facility] ([place]) Comment: Interpretive Data Percent cell count reference ranges are not reported, since discordance with absolute values may lead to misinterpretation of CBC data. Current Interpretive Data was last revised on 2017. Lymphocyte pct 8.9 % [facility] ([place]) Comment: Interpretive Data Percent cell count reference ranges are not reported, since discordance with absolute values may lead to misinterpretation of CBC data. Current Interpretive Data was last revised on 2017. Monocyte pct 3.5 % [facility] ([place]) Comment: Interpretive Data Percent cell count reference ranges are not reported, since discordance with absolute values may lead to misinterpretation of CBC data. Current Interpretive Data was last revised on 2017. Eosinophil pct 0.0 % [facility] ([place]) Comment: Interpretive Data Percent cell count reference ranges are not reported, since discordance with absolute values may lead to misinterpretation of CBC data. Current Interpretive Data was last revised on 2017. Basophil pct 0.1 % [facility] ([place]) Comment: Interpretive Data Percent cell count reference ranges are not reported, since discordance with absolute values may lead to misinterpretation of CBC data. Current Interpretive Data was last revised on 2017. Blood 06/13/2025 3:40 AM CDT 06/13/2025 3:59 AM CDT us Rob Gonzales MD LAB BLOOD ORDERABLES Final Resu lt [facility] ([place]) 1 [facility] Department [place] [address] * (ABNORMAL) CBC with auto differential (06/13/2025 3:40 AM CDT) WBC 12.42(H) 3.80 - 9.90 K/cumm Hgb 13.6 13.0 - 17.5 g/dL [facility] ([place]) Hct 39.6 38.9 - 50.3 % [facility] ([place]) Plt 272 150 - 400 K/cumm [facility] ([place]) MPV 9.3 9.1 - 12.3 fL [facility] ([place]) RBC 4.18(L) 4.30 - 5.80 M/cumm [facility] ([place]) MCV 94.7 81.3 - 96.4 fL [facility] ([place]) MCH 32.5 27.1 - 33.3 pg [facility] ([place]) MCHC 34.3 32.3 - 35.7 g/dL [facility] ([place]) RDW CV 15.2(H) 11.1 - 14.9 % [facility] ([place]) RDW SD 52.9(H) 35.7 - 48.1 fL [facility] ([place]) NRBC abs 0.00 0.00 - 0.01 K/cumm [facility] ([place]) Blood 06/13/2025 3:40 AM CDT 06/13/2025 3:59 AM CDT us Rob Gonzales MD LAB BLOOD ORDERABLES Final Resu lt [facility] ([place]) 1 [facility] [place] [address] * (ABNORMAL) Comprehensive metabolic panel (06/13/2025 3:40 AM CDT) Sodium 133(L) 135 - 145 mmol/L Potassium, pl 4.4 3.3 - 4.9 mmol/L [facility] ([place]) Chloride 96(L) 97 - 110 mmol/L [facility]) CO2 29 22 - 32 mmol/L [facility] ([place]) Anion gap 8 2 - 15 mmol/L [facility] ([place]) BUN 23 6 - 25 mg/dL [facility] ([place]) Creatinine 0.93 0.80 - 1.30 mg/dL [facility] ([place]) Glucose 132 70 - 199 mg/dL [facility] ([place]) Comment: Interpretive Data Fasting glucose >/= 126 mg/dl is diagnostic for diabetes. Fasting is defined as no caloric intake for at least 8 hours. Fasting glucose between 100 mg/dl to 125 mg/dl is diagnostic of prediabetes. In a patient with classic symptoms of hyperglycemia or hyperglycemic crisis, a random glucose >/= 200 mg/dl is diagnostic for diabetes. In the absence of unequivocal hyperglycemia, results should be confirmed by repeat testing. The classification and Diagnosis of Diabetes Diabetes Care 202; 46: S19-S40. Current interpretive data was last revised 2022. Calcium 9.4 8.5 - 10.3 mg/dL [facility] ([place]) Bilirubin, total 0.2 0.1 - 1.2 mg/dL [facility] ([place]) Protein, pl 6.8 6.5 - 8.5 g/dL [facility] ([place]) Albumin 4.0 3.5 - 5.0 g/dL [facility] ([place]) Alk phos 49 40 - 130 Units/L [facility]) ALT 20 7 - 55 Units/L [facility] AST 20 10 - 50 Units/L [facility] ([place]) Blood 06/13/2025 3:40 AM CDT 06/13/2025 4:00 AM CDT Rob Gonzales MD LAB BLOOD ORDERABLES Final Resu lt Performing Organization Address City/[facility]/ZIP Co de Phone Number [facility] ([place]) 1 [facility] [place] [address] * eGFR (06/12/2025 3:00 AM CDT) eGFR >90 >=60 mL/min/1. 73 m2 Comment: Interpretive Data Reference Interval Normal >/= 90 mL/min/1.73m2 Mildly decreased* 60 - 89 mL/min/1.73m2 Mildly to moderately decreased 45 - 59 mL/min/1.73m2 Moderately to severely decreased 30 - 44 mL/min/1.73m2 Severely decreased 15 - 29 mL/min/1.73m2 Kidney Failure < 15 mL/min/1.73m2 *Relative to young adult level Estimated glomerular filtration rate is determined by the 2020 CKD-EPI equation recommended by the National Kidney Foundation (A Unifying Approach to GFR Estimation: Recommendations of the NKF-ASK Task Force on Reassessing the Inclusion of Race in Diagnosing Kidney Disease, JASN 2020). The CKD-EPI equation should not be used for patients with unstable renal function and has not been validated in children and those over 70. Current interpretive data was last reviewed 2021. Blood 06/12/2025 3:00 AM CDT 06/12/2025 3:38 AM CDT us Rob Gonzales MD LAB BLOOD ORDERABLES Final Resu lt [facility] ([place]) 1 [facility] [place] [address] * (ABNORMAL) Differential, auto (06/12/2025 3:00 AM CDT) Neutrophil abs 10.20(H) 1.50 - 6.50 K/cumm Imm gran abs 0.05 0.00 - 0.10 K/cumm [facility] ([place]) Lymphocyte abs 0.92 0.80 - 3.30 K/cumm [facility] ([place]) Monocyte abs 0.29 0.20 - 0.80 K/cumm [facility] ([place]) Eosinophil abs 0.00 0.00 - 0.50 K/cumm [facility] ([place]) Basophil abs 0.01 0.00 - 0.10 K/cumm [facility] ([place]) Neutrophil pct 89.0 % [facility] ([place]) Comment: Interpretive Data Percent cell count reference ranges are not reported, since discordance with absolute values may lead to misinterpretation of CBC data. Current Interpretive Data was last revised on 2017. Imm gran pct 0.4 % [facility] ([place]) Comment: Interpretive Data Percent cell count reference ranges are not reported, since discordance with absolute values may lead to misinterpretation of CBC data. Current Interpretive Data was last revised on 2017. Lymphocyte pct 8.0 % [facility] ([place]) Comment: Interpretive Data Percent cell count reference ranges are not reported, since discordance with absolute values may lead to misinterpretation of CBC data. Current Interpretive Data was last revised on 2017. Monocyte pct 2.5 % [facility] ([place]) Comment: Interpretive Data Percent cell count reference ranges are not reported, since discordance with absolute values may lead to misinterpretation of CBC data. Current Interpretive Data was last revised on 2017. Eosinophil pct 0.0 % [facility] ([place]) Comment: Interpretive Data Percent cell count reference ranges are not reported, since discordance with absolute values may lead to misinterpretation of CBC data. Current Interpretive Data was last revised on 2017. Basophil pct 0.1 % [facility] ([place]) Comment: Interpretive Data Percent cell count reference ranges are not reported, since discordance with absolute values may lead to misinterpretation of CBC data. Current Interpretive Data was last revised on 2017. Blood 06/12/2025 3:00 AM CDT 06/12/2025 3:38 AM CDT Rob Gonzales MD LAB BLOOD ORDERABLES Final Resu lt [facility] ([place]) 1 [facility] [place] [address] * (ABNORMAL) CBC with auto differential (06/12/2025 3:00 AM CDT) WBC 11.47(H) 3.80 - 9.90 K/cumm Hgb 13.6 13.0 - 17.5 g/dL [facility] ([place]) Hct 39.8 38.9 - 50.3 % [facility] ([place]) Plt 286 150 - 400 K/cumm [facility] ([place]) MPV 9.6 9.1 - 12.3 fL [facility] ([place]) RBC 4.21(L) 4.30 - 5.80 M/cumm [facility] ([place]) MCV 94.5 81.3 - 96.4 fL [facility] ([place]) MCH 32.3 27.1 - 33.3 pg [facility] ([place]) MCHC 34.2 32.3 - 35.7 g/dL [facility] ([place]) RDW CV 15.2(H) 11.1 - 14.9 % [facility] ([place]) RDW SD 53.0(H) 35.7 - 48.1 fL [facility] ([place]) NRBC abs 0.00 0.00 - 0.01 K/cumm [facility] ([place]) Blood 06/12/2025 3:00 AM CDT 06/12/2025 3:38 AM CDT Rob Gonzales MD LAB BLOOD ORDERABLES Final Resu lt [facility] ([place]) 1 [facility] [place] [address] * (ABNORMAL) Comprehensive metabolic panel (06/12/2025 3:00 AM CDT) Sodium 132(L) 135 - 145 mmol/L Potassium, pl 5.1(H) 3.3 - 4.9 mmol/L [facility] ([place]) Chloride 96(L) 97 - 110 mmol/L [facility] ([place]) CO2 25 22 - 32 mmol/L [facility] ([place]) Anion gap 11 2 - 15 mmol/L [facility] ([place]) BUN 21 6 - 25 mg/dL [facility] ([place]) Creatinine 0.79(L) 0.80 - 1.30 mg/dL [facility] ([place]) Glucose 127 70 - 199 mg/dL [facility] ([place]) Comment: Interpretive Data Fasting glucose >/= 126 mg/dl is diagnostic for diabetes. Fasting is defined as no caloric intake for at least 8 hours. Fasting glucose between 100 mg/dl to 125 mg/dl is diagnostic of prediabetes. In a patient with classic symptoms of hyperglycemia or hyperglycemic crisis, a random glucose >/= 200 mg/dl is diagnostic for diabetes. In the absence of unequivocal hyperglycemia, results should be confirmed by repeat testing. The classification and Diagnosis of Diabetes Diabetes Care 2021; 46: S19-S40. Current interpretive data was last revised 2022. Calcium 9.6 8.5 - 10.3 mg/dL [facility] ([place]) Bilirubin, total 0.2 0.1 - 1.2 mg/dL [facility] ([place]) Protein, pl 7.2 6.5 - 8.5 g/dL [facility] ([place]) Albumin 4.2 3.5 - 5.0 g/dL [facility] ([place]) Alk phos 56 40 - 130 Units/L [facility] ([place]) ALT 21 7 - 55 Units/L [facility] ([place]) AST 25 10 - 50 Units/L [facility] ([place]) Blood 06/12/2025 3:00 AM CDT 06/12/2025 3:38 AM CDT us Rob Gonzales MD LAB BLOOD ORDERABLES Final Resu lt [facility] ([place]) 1 [facility] Department [place] [address] * eGFR (06/11/2025 4:12 AM CDT) Pathologist [facility] eGFR 88 >=60 mL/min/1. 73 m2 Comment: Interpretive Data Reference Interval Normal >/= 90 mL/min/1.73m2 Mildly decreased* 60 - 89 mL/min/1.73m2 Mildly to moderately decreased 45 - 59 mL/min/1.73m2 Moderately to severely decreased 30 - 44 mL/min/1.73m2 Severely decreased 15 - 29 mL/min/1.73m2 Kidney Failure < 15 mL/min/1.73m2 *Relative to young adult level Estimated glomerular filtration rate is determined by the 2020 CKD-EPI equation recommended by the National Kidney Foundation (A Unifying Approach to GFR Estimation: Recommendations of the NKF-ASK Task Force on Reassessing the Inclusion of Race in Diagnosing Kidney Disease, JASN 2020). The CKD-EPI equation should not be used for patients with unstable renal function and has not been validated in children and those over 70. Current interpretive data was last reviewed 2021. Blood 06/11/2025 4:12 AM CDT 06/11/2025 4:47 AM CDT us Rob Gonzales MD LAB BLOOD ORDERABLES Final Resu lt SANIYA MORENO) 1 [facility] Department [place] [address] * (ABNORMAL) Differential, auto (06/11/2025 4:12 AM CDT) Neutrophil abs 13.30(H) 1.50 - 6.50 K/cumm Imm gran abs 0.06 0.00 - 0.10 K/cumm [facility] ([place]) Lymphocyte abs 1.90 0.80 - 3.30 K/cumm [facility] ([place]) Monocyte abs 1.97(H) 0.20 - 0.80 K/cumm [facility] ([place]) Eosinophil abs 0.01 0.00 - 0.50 K/cumm [facility] ([place]) Basophil abs 0.02 0.00 - 0.10 K/cumm [facility] ([place]) Neutrophil pct 77.1 % [facility] ([place]) Comment: Interpretive Data Percent cell count reference ranges are not reported, since discordance with absolute values may lead to misinterpretation of CBC data. Current Interpretive Data was last revised on 2017. Imm gran pct 0.3 % [facility] ([place]) Comment: Interpretive Data Percent cell count reference ranges are not reported, since discordance with absolute values may lead to misinterpretation of CBC data. Current Interpretive Data was last revised on 2017. Lymphocyte pct 11.0 % [facility] ([place]) Comment: Interpretive Data Percent cell count reference ranges are not reported, since discordance with absolute values may lead to misinterpretation of CBC data. Current Interpretive Data was last revised on 2017. Monocyte pct 11.4 % [facility] ([place]) Comment: Interpretive Data Percent cell count reference ranges are not reported, since discordance with absolute values may lead to misinterpretation of CBC data. Current Interpretive Data was last revised on 2017. Eosinophil pct 0.1 % [facility] ([place]) Comment: Interpretive Data Percent cell count reference ranges are not reported, since discordance with absolute values may lead to misinterpretation of CBC data. Current Interpretive Data was last revised on 2017. Basophil pct 0.1 % [facility] ([place]) Comment: Interpretive Data Percent cell count reference ranges are not reported, since discordance with absolute values may lead to misinterpretation of CBC data. Current Interpretive Data was last revised on 2017. Blood 06/11/2025 4:12 AM CDT 06/11/2025 4:47 AM CDT us Rob Gonzales MD LAB BLOOD ORDERABLES Final Resu lt [facility]YA [facility] ([place]) 1 [facility] Department [place] [address] * (ABNORMAL) CBC with auto differential (06/11/2025 4:12 AM CDT) WBC 17.26(H) 3.80 - 9.90 K/cumm Hgb 14.5 13.0 - 17.5 g/dL [facility] ([place]) Hct 42.2 38.9 - 50.3 % [facility] ([place]) Plt 275 150 - 400 K/cumm [facility] ([place]) MPV 9.6 9.1 - 12.3 fL [facility] ([place]) RBC 4.44 4.30 - 5.80 M/cumm [facility] ([place]) MCV 95.0 81.3 - 96.4 fL [facility] ([place]) MCH 32.7 27.1 - 33.3 pg [facility] ([place]) MCHC 34.4 32.3 - 35.7 g/dL [facility] ([place]) RDW CV 15.3(H) 11.1 - 14.9 % [facility] ([place]) RDW SD 53.4(H) 35.7 - 48.1 fL [facility] ([place]) NRBC abs 0.00 0.00 - 0.01 K/cumm [facility] ([place]) Blood 06/11/2025 4:12 AM CDT 06/11/2025 4:47 AM CDT us Rob Gonzales MD LAB BLOOD ORDERABLES [facility] 1 [facility] Department [place] [address] * (ABNORMAL) Comprehensive metabolic panel (06/11/2025 4:12 AM CDT) Sodium 133(L) 135 - 145 mmol/L Potassium, pl 4.7 3.3 - 4.9 mmol/L [facility] ([place]) Chloride 96(L) 97 - 110 mmol/L [facility] ([place]) CO2 26 22 - 32 mmol/L [facility] ([place]) Anion gap 11 2 - 15 mmol/L [facility] ([place]) BUN 20 6 - 25 mg/dL [facility] ([place]) Creatinine 0.92 0.80 - 1.30 mg/dL [facility] ([place]) Glucose 116 70 - 199 mg/dL [facility] ([place]) Comment: Interpretive Data Fasting glucose >/= 126 mg/dl is diagnostic for diabetes. Fasting is defined as no caloric intake for at least 8 hours. Fasting glucose between 100 mg/dl to 125 mg/dl is diagnostic of prediabetes. In a patient with classic symptoms of hyperglycemia or hyperglycemic crisis, a random glucose >/= 200 mg/dl is diagnostic for diabetes. In the absence of unequivocal hyperglycemia, results should be confirmed by repeat testing. The classification and Diagnosis of Diabetes Diabetes Care 2021; 46: S19-S40. Current interpretive data was last revised 2022. Calcium 9.9 8.5 - 10.3 mg/dL [facility] ([place]) Bilirubin, total 0.2 0.1 - 1.2 mg/dL [facility] ([place]) Protein, pl 7.5 6.5 - 8.5 g/dL [facility] ([place]) Albumin 4.4 3.5 - 5.0 g/dL [facility] ([place]) Alk phos 57 40 - 130 Units/L [facility] ([place]) ALT 18 7 - 55 Units/L [facility] ([place]) AST 25 10 - 50 Units/L [facility] ([place]) Blood 06/11/2025 4:12 AM CDT 06/11/2025 4:47 AM CDT us Rob Gonzales MD LAB BLOOD ORDERABLES Final [facility]u lt [facility] 1 [facility] Department [place] [address] * (ABNORMAL) Pneumonia PCR Sputum (06/10/2025 2:24 PM CDT) C. pneumoniae DNA Not Detected Not Detected Comment:Testing performed by : [facility], 1 [facility] [place]., [address] Legionella pneumophila DNA Not Detected Not Detected [facility] ([place]) Comment:Testing performed by : [facility], 1 [facility], [address] M. pneumoniae DNA Not Detected Not Detected [facility] ([place]) Comment:Testing performed by : [facility], 1 [facility], [address] Adenovirus DNA Not Detected Not Detected [facility] ([place]) Comment:Testing performed by : [facility], 1 [facility], [address] Coronavirus (229E, OC43, HKU1, NL63) RNA Not Detected Not Detected [facility] ([place]) Comment:Testing performed by : [facility], [address] [facility], [address] Metapneumovirus RNA Not Detected Not Detected [facility] ([place]) Comment:Testing performed by : [facility], [address] [place] [address], [address] Rhinovirus/Enterov irus RNA Detected(A) Not Detected [facility] ([place]) Comment:Testing performed by : [facility], 1 [facility], [address] Influenza A RNA Not Detected Not Detected [facility] ([place]) Comment:Testing performed by : [facility], 1 [facility], [address] Influenza B RNA Not Detected Not Detected [facility] ([place]) Comment:Testing performed by : [facility], [address] [place] [address], [address] Parainfluenza virus (1-4) RNA Not Detected Not Detected [facility] ([place]) Comment:Testing performed by : [facility], [address] [place] [address], [address] RSV RNA Not Detected Not Detected [facility] ([place]) Comment:Testing performed by : [facility], [address] [place] [address], [address] Sputum 06/10/2025 2:24 PM CDT 06/10/2025 9:51 PM CDT Narrative [facility]YA [facility]NES ([place]) - 06/10/2025 11:12 PM CDT The BioFire Pneumonia Panel is a multiplexed nucleic acid test capable of simultaneous detection and identification of multiple respiratory viruses and bacteria. This panel detects Adenovirus, coronaviruses (Coronavirus HKU1, Coronavirus NL63, Coronavirus 229E, and Coronavirus OC43), Influenza A, Influenza B, Human metapneumovirus, Parainfluenza (1-4), RSV, Rhinovirus/Enterovirus, Chlamydia pneumoniae, Mycoplasma pneumoniae, and Legionella pneumophila. Additional aerobic bacterial targets are reported with the accompanying culture results with the same accession number. Rhinovirus and Enterovirus are genetically similar and cannot be reliably differentiated with this method. Negative adenovirus results should be confirmed by an alternative methodology (i.e. standalone PCR) if the suspicion for adenovirus infection is high. The results of this test must be considered in the clinical context of the patient and should not be used as the sole basis for diagnosis, treatment, or other management decisions. Negative results in the setting of a respiratory illness may be due to infection with pathogens that are not detected by this test. Positive results do not rule out infection/co-infection with other organisms. The BioFire Pneumonia Panel is FDA cleared for lower respiratory tract specimens. The performance characteristics of this assay have been determined by [facility]. Current interpretive data was last revised on 2024. Rob Gonzales MD LAB MICROBIOLOGY - [facility] Final Result SANIYA MORENO) 1 [facility] Department [place] [address] * Procalcitonin (06/10/2025 5:10 AM CDT) Procalcitonin 0.11 <=0.25 ng/mL Comment:Testing performed by : [facility], [facility], [place]., [address] Blood 06/10/2025 5:10 AM CDT 06/10/2025 6:06 PM CDT us Rob Gonzales MD LAB BLOOD ORDERABLES Final Resu lt [facility]YA HAYNES ([place]) 1 [facility] [place] [address] * Influenza A/B, RSV, and COVID-19 PCR Nasopharyngeal (06/10/2025 5:09 AM CDT) [facility] COVID-19 RNA Negative Negative Influenza A RNA Negative Negative [facility] ([place]) Influenza B RNA Negative Negative [facility] ([place]) RSV RNA Negative Negative [facility] ([place]) Comment: Interpretive data: Testing performed by [facility]. This test is performed using the [employer] Xpert Xpress CoV-2/Flu/RSV plus assay. This is a multiplex, real- time reverse transcriptase PCR assay intended for the qualitative detection of nucleic acid from SARS-CoV-2, influenza A, influenza B, and respiratory syncytial virus. This assay has been cleared by the [place] Food and Drug administration. The performance characteristics have been verified by the [facility]. Results must be considered in the clinical context, and a negative result does not rule out infection. Interpretive Data last revised 2023 Nasopharyngeal 06/10/2025 5: 09 AM CDT 06/10/2025 5:17 AM CDT Narrative [facility] ([place]) - 06/10/2025 6:05 AM CDT Is the Patient experiencing symptoms consistent with COVID?->Yes Rob Gonzales MD LAB MICROBIOLOGY - GENERAL ORDE RABLES Final Result [facility]IYA HAYNES ([place]) 1 [facility] Department [place] [address] * eGFR (06/10/2025 5:09 AM CDT) [facility] eGFR >90 >=60 mL/min/1. 73 m2 Comment: Interpretive Data Reference Interval Normal >/= 90 mL/min/1.73m2 Mildly decreased* 60 - 89 mL/min/1.73m2 Mildly to moderately decreased 45 - 59 mL/min/1.73m2 Moderately to severely decreased 30 - 44 mL/min/1.73m2 Severely decreased 15 - 29 mL/min/1.73m2 Kidney Failure < 15 mL/min/1.73m2 *Relative to young adult level Estimated glomerular filtration rate is determined by the 2020 CKD-EPI equation recommended by the National Kidney Foundation (A Unifying Approach to GFR Estimation: Recommendations of the NKF-ASK Task Force on Reassessing the Inclusion of Race in Diagnosing Kidney Disease, JASN 202). The CKD-EPI equation should not be used for patients with unstable renal function and has not been validated in children and those over 70. Current interpretive data was last reviewed 2021. Blood 06/10/2025 5:09 AM CDT 06/10/2025 5:16 AM CDT us Rob Gonzales MD LAB BLOOD ORDERABLES Final Resu lt [facility] ([place]) 1 [facility] Department [place] [address] * (ABNORMAL) Differential, auto (06/10/2025 5:09 AM CDT) Neutrophil abs 8.62(H) 1.50 - 6.50 K/cumm Imm gran abs 0.05 0.00 - 0.10 K/cumm [facility] ([place]) Lymphocyte abs 0.62(L) 0.80 - 3.30 K/cumm [facility] ([place]) Monocyte abs 0.13(L) 0.20 - 0.80 K/cumm [facility] ([place]) Eosinophil abs 0.02 0.00 - 0.50 K/cumm [facility] ([place]) Basophil abs 0.03 0.00 - 0.10 K/cumm [facility] ([place]) Neutrophil pct 91.1 % [facility] ([place]) Comment: Interpretive Data Percent cell count reference ranges are not reported, since discordance with absolute values may lead to misinterpretation of CBC data. Current Interpretive Data was last revised on 2017. Imm gran pct 0.5 % [facility] ([place]) Comment: Interpretive Data Percent cell count reference ranges are not reported, since discordance with absolute values may lead to misinterpretation of CBC data. Current Interpretive Data was last revised on 2017. Lymphocyte pct 6.5 % [facility] ([place]) Comment: Interpretive Data Percent cell count reference ranges are not reported, since discordance with absolute values may lead to misinterpretation of CBC data. Current Interpretive Data was last revised on 2017. Monocyte pct 1.4 % [facility] ([place]) Comment: Interpretive Data Percent cell count reference ranges are not reported, since discordance with absolute values may lead to misinterpretation of CBC data. Current Interpretive Data was last revised on 2017. Eosinophil pct 0.2 % [facility] ([place]) Comment: Interpretive Data Percent cell count reference ranges are not reported, since discordance with absolute values may lead to misinterpretation of CBC data. Current Interpretive Data was last revised on 2017. Basophil pct 0.3 % [facility] ([place]) Comment: Interpretive Data Percent cell count reference ranges are not reported, since discordance with absolute values may lead to misinterpretation of CBC data. Current Interpretive Data was last revised on 2017. Blood 06/10/2025 5:09 AM CDT 06/10/2025 5:16 AM CDT us Rob Gonzales MD LAB BLOOD ORDERABLES Final Resu lt SANIYA HAYNES ([place]) 1 [facility] Department [place] [address] * Strep pneumoniae antigen, urine Urine (06/10/2025 5:09 AM CDT) S. pneumoniae Ag Negative Negative Comment: Interpretive Data A positive result is indicative of pneumococcal pneumonia in patients with severe CAP. Cross-reactivity with closely related Streptococcus bacteria may occur. A negative result suggests no current or recent pneumococcal infection but cannot rule out infection with S. pneumoniae. The results of this testing should be used in conjunction with clinical findings and other diagnostic testing, including microbiologic culture. Current Interpretive Data was last revised on 2022 Testing performed by: [facility], [address] [place] [address], [place]., [address] Urine 06/10/2025 5:09 AM CDT 06/10/2025 10:09 AM CDT Rob Gonzales MD LAB MICROBIOLOGY - GENERAL ORDE RABLES Final Result [facility] ([place]) 1 [facility] Department [place] [address] * (ABNORMAL) CBC with auto differential (06/10/2025 5:09 AM CDT) WBC 9.47 3.80 - 9.90 K/cumm Hgb 14.2 13.0 - 17.5 g/dL [facility] ([place]) Hct 41.5 38.9 - 50.3 % [facility] ([place]) Plt 263 150 - 400 K/cumm [facility] ([place]) MPV 9.1 9.1 - 12.3 fL [facility] ([place]) RBC 4.37 4.30 - 5.80 M/cumm [facility] ([place]) MCV 95.0 81.3 - 96.4 fL [facility] ([place]) MCH 32.5 27.1 - 33.3 pg [facility] ([place]) MCHC 34.2 32.3 - 35.7 g/dL [facility] ([place]) RDW CV 15.1(H) 11.1 - 14.9 % [facility] ([place]) RDW SD 53.7(H) 35.7 - 48.1 fL [facility] ([place]) NRBC abs 0.00 0.00 - 0.01 K/cumm [facility] ([place]) Blood 06/10/2025 5:09 AM CDT 06/10/2025 5:16 AM CDT Rob Gonzales MD LAB BLOOD ORDERABLES Final Resu lt [facility] ([place]) [address] [place] [address] * Legionella antigen Urine (06/10/2025 5:09 AM CDT) Pathologist [facility] Legionella Ag Negative Negative Comment: Interpretive Data This test detects only Legionella pneumophila serogroup 1 antigen. Current interpretive data was last revised on 2019. Testing performed by: [facility], [address] [place] [address], [place]., [address] Urine 06/10/2025 5:09 AM CDT 06/10/2025 10:09 AM CDT Rob Gonzales MD LAB MICROBIOLOGY - GENERAL ORDJeanie DWYER Final Result [facility] ([place]) 1 [facility] [place] [address] * (ABNORMAL) Comprehensive metabolic panel (06/10/2025 5:09 AM CDT) Pathologist [facility] Sodium 132(L) 135 - 145 mmol/L Potassium, pl 4.5 3.3 - 4.9 mmol/L [facility] ([place]) Chloride 94(L) 97 - 110 mmol/L [facility] ([place]) CO2 25 22 - 32 mmol/L [facility] ([place]) Anion gap 13 2 - 15 mmol/L [facility] ([place]) BUN 6 6 - 25 mg/dL [facility] ([place]) Creatinine 0.82 0.80 - 1.30 mg/dL [facility] ([place]) Glucose 130 70 - 199 mg/dL [facility] ([place]) Comment: Interpretive Data Fasting glucose >/= 126 mg/dl is diagnostic for diabetes. Fasting is defined as no caloric intake for at least 8 hours. Fasting glucose between 100 mg/dl to 125 mg/dl is diagnostic of prediabetes. In a patient with classic symptoms of hyperglycemia or hyperglycemic crisis, a random glucose >/= 200 mg/dl is diagnostic for diabetes. In the absence of unequivocal hyperglycemia, results should be confirmed by repeat testing. The classification and Diagnosis of Diabetes Diabetes Care 202; 46: S19-S40. Current interpretive data was last revised 2022. Calcium 9.8 8.5 - 10.3 mg/dL [facility] ([place]) Bilirubin, total 0.4 0.1 - 1.2 mg/dL [facility] ([place]) Protein, pl 8.0 6.5 - 8.5 g/dL [facility] ([place]) Albumin 4.7 3.5 - 5.0 g/dL [facility] ([place]) Alk phos 62 40 - 130 Units/L [facility] ([place]) ALT 19 7 - 55 Units/L [facility] ([place]) AST 25 10 - 50 Units/L [facility] ([place]) Blood 06/10/2025 5:09 AM CDT 06/10/2025 5:16 AM CDT us Rob Gonzales MD LAB BLOOD ORDERABLES Final Resu lt Performing Organization Address City/[facility]/ZIP Co de Phone Number [facility] 1 [facility] [employer] [place] [address] * (ABNORMAL) Troponin T high-sensitivity 2-hour (06/10/2025 4:01 AM CDT) Trop T hs 34(H) <=22 ng/L Comment: Interpretive Data For further hscTnT resources including the diagnostic algorithm and an aid in interpretation, copy and paste this link: https://[email or web address].testcatalog.org/show/[email or web address] Current Interpretive Data last revised 2020. Trop T hs delta 6 ng/L [facility] ([place]) Trop T hs interp Equivocal [facility] ([place]) Blood 06/10/2025 4:01 AM CDT 06/10/2025 4:10 AM CDT us Ruben Bazan MD LAB BLOOD ORDERABLE S Final Result [facility] ([place]) 1 [facility] Department [place] [address] * CT Chest PE (CTA) W Contrast (06/10/2025 3:53 AM CDT) Anatomical Region Laterality Modality Body N/A Computed Tomogra phy 06/10/2025 4:00 AM CDT Impressions 06/10/2025 4:00 AM CDT No PE or other acute abnormality identified. Electronically signed by: Ruben Espinoza M.D. Narrative 06/10/2025 4:00 AM CDT EXAMINATION: CT CHEST PE (CTA) W CONTRAST HISTORY: Shortness of breath today TECHNIQUE: Computed tomographic images were acquired using a chest angiographic protocol optimized for pulmonary embolism. Contrast enhanced transaxial images were obtained following the intravenous administration of 75 ml of nonionic contrast. Multiplanar reformatted images and three-dimensional images were obtained on the 3-D workstation and sent to the PACS archival system. COMPARISON: None FINDINGS: Pulmonary arteries are clear. Stomach arteries appear normal. Small heart size ReFlex hyperinflation. Coronary artery calcifications. No enlarged lymph node. Thoracic inlet unremarkable. Advanced emphysema. Trachea and major airways patent. Renal cysts. Moderate multilevel disc disease. Body wall unremarkable. Procedure Note Ruben Espinoza MD - 06/10/2025 EXAMINATION: CT CHEST PE (CTA) W CONTRAST HISTORY: Shortness of breath today TECHNIQUE: Computed tomographic images were acquired using a chest angiographic protocol optimized for pulmonary embolism. Contrast enhanced transaxial images were obtained following the intravenous administration of 75 ml of nonionic contrast. Multiplanar reformatted images and three-dimensional images were obtained on the 3-D workstation and sent to the PACS archival system. COMPARISON: None FINDINGS: Pulmonary arteries are clear. Stomach arteries appear normal. Small heart size ReFlex hyperinflation. Coronary artery calcifications. No enlarged lymph node. Thoracic inlet unremarkable. Advanced emphysema. Trachea and major airways patent. Renal cysts. Moderate multilevel disc disease. Body wall unremarkable. IMPRESSION: No PE or other acute abnormality identified. Electronically signed by: Ruben Espinoza M.D. us Ruben Bazan MD IMG CT PROCEDURES F inal Result * XR Chest 1 View (06/10/2025 2:26 AM CDT) Anatomical Region Laterality Modality Body, Chest N/A Computed Radiogr aphy 06/10/2025 2:37 AM CDT Impressions 06/10/2025 2:37 AM CDT No acute abnormality identified. Electronically signed by: Ruben Espinoza M.D. Narrative 06/10/2025 2:37 AM CDT EXAMINATION: 1 view chest radiograph History: Shortness of breath tonight while bowling COMPARISON: 05/25/2023 TECHNIQUE: Single view chest FINDINGS: Lungs are clear. Heart size somewhat small, possibly from hyperinflation. Thoracic inlet osteophytes. Upper abdomen unremarkable. Procedure Note Ruben Espinoza MD - 06/10/2025 EXAMINATION: 1 view chest radiograph History: Shortness of breath tonight while bowling COMPARISON: 05/25/2023 TECHNIQUE: Single view chest FINDINGS: Lungs are clear. Heart size somewhat small, possibly from hyperinflation. Thoracic inlet osteophytes. Upper abdomen unremarkable. IMPRESSION: No acute abnormality identified. Electronically signed by: Ruben sEpinoza M.D. us Ruben Bazan MD IMG XR PROCEDURES F inal Result * (ABNORMAL) Troponin T high-sensitivity series (baseline, 2hr, 4hr, 6hr) (06/10/2025 2:00 AM CDT) Trop T hs 28(H) <=22 ng/L Comment: Interpretive Data For further hscTnT resources including the diagnostic algorithm and an aid in interpretation, copy and paste this link: https://nrl.testcatalog.org/show/hsTrop Current Interpretive Data last revised 2020. Blood 06/10/2025 2:00 AM CDT 06/10/2025 2:06 AM CDT us Ruben Bazan MD LAB BLOOD ORDERABLE S Final Result [facility] [place] 1 [facility] Department [place] [employer] [address] * eGFR (06/10/2025 2:00 AM CDT) eGFR >90 >=60 mL/min/1. 73 m2 Comment: Interpretive Data Reference Interval Normal >/= 90 mL/min/1.73m2 Mildly decreased* 60 - 89 mL/min/1.73m2 Mildly to moderately decreased 45 - 59 mL/min/1.73m2 Moderately to severely decreased 30 - 44 mL/min/1.73m2 Severely decreased 15 - 29 mL/min/1.73m2 Kidney Failure < 15 mL/min/1.73m2 *Relative to young adult level Estimated glomerular filtration rate is determined by the 2020 CKD-EPI equation recommended by the National Kidney Foundation (A Unifying Approach to GFR Estimation: Recommendations of the NKF-ASK Task Force on Reassessing the Inclusion of Race in Diagnosing Kidney Disease, JASN 2020). The CKD-EPI equation should not be used for patients with unstable renal function and has not been validated in children and those over 70. Current interpretive data was last reviewed 2021. Blood 06/10/2025 2:00 AM CDT 06/10/2025 2:06 AM CDT us Ruben Bazan MD LAB BLOOD ORDERABLE S Final Result [facility] ([place] 1 [facility] Department [place] [address] * (ABNORMAL) Differential, auto (06/10/2025 2:00 AM CDT) Neutrophil abs 4.96 1.50 - 6.50 K/cumm Imm gran abs 0.03 0.00 - 0.10 K/cumm [facility] ([place]) Lymphocyte abs 2.73 0.80 - 3.30 K/cumm [facility] ([place]) Monocyte abs 1.28(H) 0.20 - 0.80 K/cumm [facility] ([place]) Eosinophil abs 0.39 0.00 - 0.50 K/cumm [facility] ([place]) Basophil abs 0.07 0.00 - 0.10 K/cumm [facility] ([place]) Neutrophil pct 52.5 % [facility] ([place]) Comment: Interpretive Data Percent cell count reference ranges are not reported, since discordance with absolute values may lead to misinterpretation of CBC data. Current Interpretive Data was last revised on 2017. Imm gran pct 0.3 % [facility] ([place]) Comment: Interpretive Data Percent cell count reference ranges are not reported, since discordance with absolute values may lead to misinterpretation of CBC data. Current Interpretive Data was last revised on 2017. Lymphocyte pct 28.9 % [facility] ([place]) Comment: Interpretive Data Percent cell count reference ranges are not reported, since discordance with absolute values may lead to misinterpretation of CBC data. Current Interpretive Data was last revised on 2017. Monocyte pct 13.5 % [facility] ([place]) Comment: Interpretive Data Percent cell count reference ranges are not reported, since discordance with absolute values may lead to misinterpretation of CBC data. Current Interpretive Data was last revised on 2017. Eosinophil pct 4.1 % [facility] ([place]) Comment: Interpretive Data Percent cell count reference ranges are not reported, since discordance with absolute values may lead to misinterpretation of CBC data. Current Interpretive Data was last revised on 2017. Basophil pct 0.7 % [facility] ([place]) Comment: Interpretive Data Percent cell count reference ranges are not reported, since discordance with absolute values may lead to misinterpretation of CBC data. Current Interpretive Data was last revised on 2017. Blood 06/10/2025 2:00 AM CDT 06/10/2025 2:06 AM CDT us Ruben Bazan MD LAB BLOOD ORDERABLE S Final Result [facility] ([place]) 1 [facility] Department of Laboratories [place], [place] [id number] * Pro B-type natriuretic peptide (06/10/2025 2:00 AM CDT) NT-proBNP 110 <=300 pg/mL Comment: Interpretive Comments: A. Dyspnea in Acute Care Setting All Ages: < 300 pg/ml, acute heart failure unlikely. < 50 yrs: 300 - 450 pg/ml, further investigation warranted. > 450 pg/ml, acute heart failure likely. 50 - 74 yrs: 300 - 900 pg/ml, further investigation warranted. > 900 pg/ml, acute heart failure likely . > or = 75 yrs: 450 - 1800 pg/ml, further investigation warranted. > 1800 pg/ml, acute heart failure likely. B. Non-acute Setting < 75 yrs < 125 pg/ml, rules out heart failure. > or = 125 pg/ml, further investigation warranted. > or = 75 yrs < 450 pg/ml, rules out heart failure. > or = 450 pg/ml, further investigation warranted. - Knowledge of each individual patient's NT-proBNP range may be more useful than using similar cut-points for every patient. Please note that marked elevations in NT-proBNP levels may be observed in state other than Left Ventricular Congestive Failure, including: acute coronary syndromes, right heart strain/failure (including pulmonary embolism and cor pulmonale), critical illness, renal failure, as well as advanced age. - References: 1. Kadi SILVERMAN et.al. Eur Heart J. 2006:27:330-337. 2. Sheri RW, Pat ROE. J. AM [place] Cardiol: Cardiovasc Imag. 2009;2: 216- 225. Interpretive Data Last Revised Date: 2018. Blood 06/10/2025 2:00 AM CDT 06/10/2025 2:06 AM CDT us Ruben Bazan MD LAB BLOOD ORDERABLE S Final Result [facility] 1 [facility] Department [place] [address] * (ABNORMAL) CBC with auto differential (06/10/2025 2:00 AM CDT) WBC 9.46 3.80 - 9.90 K/cumm Hgb 14.1 13.0 - 17.5 g/dL [facility] ([place]) Hct 41.3 38.9 - 50.3 % [facility] ([place]) Plt 245 150 - 400 K/cumm [facility] ([place]) MPV 9.3 9.1 - 12.3 fL [facility] ([place]) RBC 4.33 4.30 - 5.80 M/cumm [facility] MCV 95.4 81.3 - 96.4 fL [facility] MCH 32.6 27.1 - 33.3 pg [facility] MCHC 34.1 32.3 - 35.7 g/dL [facility] RDW CV 15.2(H) 11.1 - 14.9 % [facility] RDW SD 53.6(H) 35.7 - 48.1 fL [facility] ([place]) NRBC abs 0.00 0.00 - 0.01 K/cumm [facility] ([place]) Blood 06/10/2025 2:00 AM CDT 06/10/2025 2:06 AM CDT Ruben Bazan MD LAB BLOOD ORDERABLE S Final Result Performing Organization Address City/[facility]/ZIP Co de Phone Number [facility] 1 [facility] [place] [address] * Magnesium (06/10/2025 2:00 AM CDT) Pathologist [facility] Magnesium 1.8 1.4 - 2.5 mg/dL Blood 06/10/2025 2:00 AM CDT 06/10/2025 2:06 AM CDT Ruben Bazan MD LAB BLOOD ORDERABLE S Final Result [facility] ([place]) 1 [facility] [place] [address] * Blood gas, venous (06/10/2025 2:00 AM CDT) pH, Venous 7.35 7.32 - 7.43 PCO2, Venous 47 40 - 50 mmHg [facility] ([place]) PO2, Venous 53 mmHg [facility] A ([place]) HCO3 Venous, Calculated 25 20 - 30 mmol/L [facility] ([place] BE, venous 0 mmol/L [facility] ([place]) Comment: Interpretive Data No Reference Range Established Current Interpretive Data was last revised on 2017. Blood 06/10/2025 2:00 AM CDT 06/10/2025 2:06 AM CDT us Ruben Bazan MD LAB BLOOD ORDERABLE S Final Result [facility] ([place] 1 [facility] Department [place] [address] * (ABNORMAL) Comprehensive metabolic panel (06/10/2025 2:00 AM CDT) Sodium 132(L) 135 - 145 mmol/L Potassium, pl 4.6 3.3 - 4.9 mmol/L [facility] ([place]) Chloride 97 97 - 110 mmol/L [facility] ([place]) CO2 23 22 - 32 mmol/L [facility] ([place]) Anion gap 12 2 - 15 mmol/L [facility] ([place]) BUN 5(L) 6 - 25 mg/dL [facility] ([place]) Creatinine 0.76(L) 0.80 - 1.30 mg/dL [facility] ([place]) Glucose 114 70 - 199 mg/dL [facility] ([place]) Comment: Interpretive Data Fasting glucose >/= 126 mg/dl is diagnostic for diabetes. Fasting is defined as no caloric intake for at least 8 hours. Fasting glucose between 100 mg/dl to 125 mg/dl is diagnostic of prediabetes. In a patient with classic symptoms of hyperglycemia or hyperglycemic crisis, a random glucose >/= 200 mg/dl is diagnostic for diabetes. In the absence of unequivocal hyperglycemia, results should be confirmed by repeat testing. The classification and Diagnosis of Diabetes Diabetes Care 2021; 46: S19-S40. Current interpretive data was last revised 2022. Calcium 9.4 8.5 - 10.3 mg/dL [facility] ([place]) Bilirubin, total 0.4 0.1 - 1.2 mg/dL [facility] ([place]) Protein, pl 7.6 6.5 - 8.5 g/dL [facility] ([place]) Albumin 4.5 3.5 - 5.0 g/dL [facility] ([place]) Alk phos 59 40 - 130 Units/L [facility] ([place]) ALT 18 7 - 55 Units/L [facility] ([place]) AST 26 10 - 50 Units/L [facility] ([place]) Blood 06/10/2025 2:00 AM CDT 06/10/2025 2:06 AM CDT us Ruben Bazan MD LAB BLOOD ORDERABLE S Final Result Performing Organization Address City/[facility] Co de Phone Number [facility] ([place]) [address] [place] [address] [place] [address] * ECG 12 lead (06/10/2025 1:53 AM CDT) 06/10/2025 1:53 AM CDT Narrative [facility] - 06/10/2025 8:34 AM CDT Vent Rate: 113 bpm RR Interval: 527 msec MD Interval: 150 msec QRS Duration: 98 msec QT Interval: 334 msec QTC Interval: 401 msec P-R-T [place]: 84 - 43 - 91 degrees IMPRESSION: SINUS TACHYCARDIA SEPTAL MYOCARDIAL INFARCTION , OF INDETERMINATE AGE [40+ ms Q WAVE IN V1/V2] ABNORMAL ECG Electronically Signed By: Otilio Esteban MD us Ruben Bazan MD ECG ORDERABLES Fin al Result Performing Organization Address City/[facility] Co de Phone Number [facility] nWay [facility] from Last [address] [facility] MDCR HMO REF [facility] MEDICARE ADVANTAGE Advance Directives For more information, please contact: [phone] * Full Code (Latest Code Status on File) Date Activated Date Inactivated Comments 06/10/2025 4:43 AM 06/14/2025 8:21 PM * Full Code Date Activated Date Inactivated Comments 09/04/2020 2:18 PM 09/05/2020 10:06 PM Care Teams Detailer [employer] Phot[employer] Relationship Specialty Start Date End Date Luis Shahid MD PCP - General Family Practice 05/25/23 Julio César Strauss DO [address] [place] [address] [address] [place] [address] Consulting Physician Pulmonary Disease 06/14/25 Lisa Joe MA [address] [place] [address] [address] [place] [address] [facility] Enterprise Application Analyst 06/17/25
--- OUTSIDE RECORDS SUMMARY | 2025-06-18 12:09 | XMS_ITS | Encounter Summary ---
Author Organization [facility] Healthcare Address [address] [place] [address] Care Team Providers Care Poultry Trimmer Name Role Phone Luis Shahid MD Primary Care Provider [phone] StraussJulio César Vince DO Unavailable [phone] Lisa Joe MA Unavailable [phone] Reason for Visit * Reason Comments Unsuccessful Phone Call 1 [facility] x1 of day 1 Encounter Details Date Type Department Care Team (Late st Contact Info) Description 06/17/2025 JB ED Outreach [facility] Accountable Care Organization [address] [place] [id number] Lisa Joe MA [address] [place] [address] [facility] [address] [place] [address] Social History Tobacco Use Types Packs/Day Years Used Date Smoking Tobacco: Every Day Cigarettes 0.5 50 Smokeless Tobacco: Never Alcohol Use Standard Drinks/Week Comments Yes 20 [...] week 06/10/2025 How often do you attend chur ch or zoroastrianism services? Never 06/10/2025 Do you belong to any clubs o r organizations such as mormonism groups, unions, fraternal or athletic groups, or [...] money to buy more. Never true 06/10/20 25 Within the past 12 months, t he [...] any time in the past 12 m [facility], were you homeless or living in a correction (including now)? 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 Gender Identity Not on file Sexual Orientation Not on file documented as of this encounter Plan of Treatment Not on file documented as of this encounter Visit Diagnoses Not on filedocumented in this encounter Additional Health Concerns Infection Onset Date Last Indicated Resolved Time Rhino/Enterovirus 06/10/2025 06/10/2025 06/17/2025 7:26 PM WINDOW COVERING SALES CONSULTANT documented as of this encounter Care Teams Poultry Trimmer Relationship Specialty Start Date End Date Luis Shahid MD PCP - General Family Practice 05/25/23 Julio César Strauss DO [address] [facility] [address] [place] [address] Consulting Physician Pulmonary Disease 06/14/25 Lisa Joe MA [address] [place] [address] [address] [place] [address] [employer] Motor Vehicle Clerk 06/17/25 documented as of this encounter
[2025-06-18 19:43] LABS: Anion Gap 5 mmol/L (4-12); Blood Urea Nitrogen 20 mg/dL (9-20); Calcium 8.9 mg/dL (8.4-10.2); Carbon Dioxide 26 mmol/L (22-30); Chloride 100 mmol/L (98-107); Estimated Glomerular Filt Rate > 60; Glucose 76 mg/dL (65-110); Potassium 5.0 mmol/L (3.4-5.0); Sodium 131 mmol/L (137-145)
== END 2025-06-18 10:31 | disposition home or self-care (01) ==
PROVIDERS: PCP Nurse Practitioner Adult Health; Visit Provider Nurse Practitioner Adult Health
DX: E87.5 Hyperkalemia (principal)
CPT/HCPCS: 36415; 80048